=== PATIENT | female | born 1960 | race Two or more races ===

== ENCOUNTER → 2025-03-12 | Outpatient (CLI) | payer BC, SELFPAY | END | disposition home or self-care (01) | LOC: SLDO 14:13 | PROVIDERS: PCP Nurse Practitioner Family; Referring Provider Nurse Practitioner Family; Visit Provider Nurse Practitioner Family | DX: N39.0 Urinary tract infection, site not specified (principal) | CPT/HCPCS: 87086 ==

== ENCOUNTER 2025-06-26 09:31 | Emergency (ER) | payer BC, SELFPAY ==
[2025-06-26 09:39] VITALS: PULSE 76; O2SAT 96; BMI 38.7
[2025-06-26 09:42] VITALS: BP 133/89; PULSE 85; RESP 16; TEMP 37; O2SAT 96
--- NOTE | 2025-06-26 09:51 | EDNOTE_ITS ---
ED Epistaxis RME/HPI General Chief complaint: Epistaxis/Nasal Foreign Body Stated complaint: NOSE BLEED Time Seen by Provider: 06/26/25 09:43 Arrival date/time: 06/26/25 09:31 RME / HPI RME / HPI Narrative: 65 year old female with history of hypertension and fibromyalgia presents to the ED for evaluation of nose bleed today. Patient reports she was in the shower when the bleeding began, reportedly gushing . States she held pressure just below the bridge of nose for 20 minutes with no improvement, prompting ED visit. States en route to ED she coughed up two large clots and the nose bleed resolved. In the ED, she complains of a burning pain to the right nostril. No other associated symptoms or complaints. Mentioned 1 week ago she was sick with an URI; symptoms included body aches, headache, cough, and nasal congestion which she was taking Mucinex for. Denied blowing her nose during that time. Related Data Home Medications ?Medication ?Instructions ?Recorded ?Confirmed duloxetine 60 mg capsule,delayed 60 mg PO QDAY 9 release (Cymbalta) lisinopril 40 mg tablet 40 mg PO QDAY 03/11/19 Allergies Allergy/AdvReac Type Severity Reaction Status Date / Time No Known Allergies Allergy Verified 06/17/19 15:39 Review of Systems Review of Systems Systems Reviewed: All systems reviewed, normal except as documented Past Medical History Past Medical History CARDIAC: Positive Cardiac Disorders and Hypertension; Negative Congestive Heart Failure RESPIRATORY: Negative Chronic Obstructive Pulmonary Disease (COPD) GENITOURINARY: Negative Renal Disease MUSCULOSKELETAL: Positive Musculoskeletal Disorders and Fibromyalgia ENDOCRINE: Negative Diabetes Mellitus Type 1 or Diabetes Mellitus Type 2 Social History SMOKING STATUS: Former smoker ED Exam Narrative Physical exam: see MDM Course Quality Measures none Vital Signs Vital signs: Vital Signs Temperature 98.6 F 06/26/25 09:42 Pulse Rate 85 06/26/25 09:42 Respiratory Rate 16 06/26/25 09:42 Blood Pressure 133/89 H 06/26/25 09:42 Pulse Oximetry (%) 96 06/26/25 09:42 Oxygen Delivery Method Room Air 06/26/25 09:42 Epistaxis MDM Narrative [facility] Narrative:: This section includes all my notes and documentations, including HPI, PE, and ED course. Usama Branch MD ? HPI: 65 year old female with history of hypertension and fibromyalgia presents to the ED for evaluation of nose bleed today. Patient reports she was in the shower when the bleeding began, reportedly gushing . States she held pressure just below the bridge of nose for 20 minutes with no improvement, prompting ED visit. States en route to ED she coughed up two large clots and the nose bleed resolved. In the ED, she complains of a burning pain to the right nostril. No other associated symptoms or complaints. Mentioned 1 week ago she was sick with an URI; symptoms included body aches, headache, cough, and nasal congestion which she was taking Mucinex for. Denied blowing her nose during that time. ? ROS: All negative except as documented in HPI. ? PE: GENERAL APPEARANCE:? alert and oriented x 4, well-developed, well-nourished, no acute distress VITALS: All vitals were reviewed and the pulse ox is 95% on room air, which is normal according to my interpretation. HEENT: Normocephalic, atraumatic; pupils equal, round, reactive to light; EOMI; mucous membranes pink, moist; oropharynx clear NECK: Supple LUNGS: CTABL HEART: Regular rate, regular rhythm EXTREMITIES:? atraumatic NEUROLOGIC: awake; alert and oriented x4; cranial nerves II-XII grossly intact PSYCHIATRIC:? appropriate mood and affect SKIN: warm, dry, normal color; no rashes ? No diagnostic tests were indicated. Plan to observe and DC home. ? At this point, diagnoses include: Epistaxis ? During ED course, the patient had no epistaxis and remained stable. ? Recommended outpatient care. ? Based on my best medical judgment, made decision no further evaluation or treatment indicated at this time. Patient understands and agrees to the customized discharge instructions and printed, see below. ? Discharge instructions from Dr. Branch: It is very important that you do not blow your nose as this will dislodge the clot and make your nose bleed again. Luckily your nosebleed stopped and did not start again. If you have any further issues with the nosebleed or any other issues please return to the ER right away and we will help you. Otherwise you should follow-up with your primary care doctor within the next several days. Patient data External records reviewed:: [facility] previous records Clinical information provided by:: patient Social determinants that could affect healthcare access:: none Patient has the following chronic illnesses:: Hypertension How is presenting disease/condition affected by chronic disease/condition?: exacerbated by Evaluation data The following diagnostics were reviewed and interpreted by me:: other (specify) (None ) Lab and/or radiology exams considered but not ordered:: None Interpretation Summary: See MDM Medications / Prescriptions Medications or Prescriptions considered but not ordered:: None Medication administrations:: None Consultations Consultation(s) initiated? (list below): No Diagnosis Epistaxis Differential Diagnosis: nasal bone fracture, anterior epistaxis and posterior epistaxis Most likely diagnosis given after review of the tests above:: Epistaxis Admission Indicated Admission indicated?: not indicated Admission Request Was there a request for admission?: No Disposition Plan Disposition Plan: Discharge Discharge Attestation Discharge Attestation: The patient and all family members were given an opportunity to ask questions and understood the discharge instructions. Discharge instructions specifically effects, indications for sooner follow up or return to the emergency department, and the expected course of current diagnosis. Patient condition: Stable Discharge Plan Plan Patient Disposition: HOME (Self Care) Discharge Disposition comment: Stable for discharge home Patient condition on transfer: Stable Prescriptions/Referrals Prescriptions/Med Rec: No Action duloxetine [Cymbalta] 60 mg capsule,delayed release(DR/EC) 60 mg PO QDAY lisinopril 40 mg tablet 40 mg PO QDAY Referrals: Ofelia Chowdary MD [Primary Care Provider, [facility]] - In 1 week Problem List Clinical Impression: Epistaxis Patient/Caregiver Discharge Instructions Discharge Activity: activity as tolerated Diet Instructions: No restrictions Education Materials: ED Epistaxis (Adult) Additional Instructions: It is very important that you do not blow your nose as this will dislodge the clot and make your nose bleed again. Luckily your nosebleed stopped and did not start again. If you have any further issues with the nosebleed or any other i ssues please return to the ER right away and we will help you. Otherwise you should follow-up with your primary care doctor within the next several days. Print Language: Georgian Stand Alone Forms: [employer] Award Info., Patient Portal Info Letter
[2025-06-26 11:42] VITALS: BP 151/95; PULSE 77; RESP 16; O2SAT 95
== END 2025-06-26 11:43 | disposition home or self-care (01) ==
PROVIDERS: Emergency Provider Emergency Medicine; PCP Family Medicine
DX: R04.0 Epistaxis (principal)
CPT/HCPCS: 99281